=== PATIENT | female | born 1950 | race Hispanic/Latino ===

== ENCOUNTER 2023-05-09 21:06 | Emergency (ER) | payer OTHER ==
[~2023-05-09] VITALS: Ht 149.9 cm; Wt 59.0 kg
[2023-05-09 21:07] VITALS: BP 168/78; PULSE 81; RESP 18
[2023-05-09] MEDS ORDERED: ACETAMINOPHEN 500 MG TABLET PO ONE (22:00)
== END 2023-05-09 23:22 | disposition home or self-care (01) ==
LOC: EDH 21:06
DX: S00.03XA Contusion of scalp, initial encounter (principal); S16.1XXA Strain of muscle, fascia and tendon at neck level, initial encounter; S40.022A Contusion of left upper arm, initial encounter; S20.212A Contusion of left front wall of thorax, initial encounter; I10 Essential (primary) hypertension; F32.A Depression, unspecified; E03.9 Hypothyroidism, unspecified; Z90.710 Acquired absence of both cervix and uterus; Z98.890 Other specified postprocedural states; W01.0XXA Fall on same level from slipping, tripping and stumbling without subsequent striking against object, initial encounter; Y93.89 Activity, other specified; Y92.89 Other specified places as the place of occurrence of the external cause; Y99.8 Other external cause status
CPT/HCPCS: 70450; 71100; 72125; 73080; 73090